=== PATIENT | female | born 1995 | race American Indian/Alaskan Native ===

== ENCOUNTER 2020-01-14 15:53 | Emergency (ER) | payer OTHER, MEDICAID ==
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
[2020-01-14] MEDS ORDERED: HYDROcodone/ACETAMINOPHEN 5-325 MG TAB PO ONE (19:27)
[2020-01-14] MEDS ORDERED: ONDANSETRON 4 MG ODT TAB PO ONE (19:27)
[2020-01-14] MEDS ORDERED: IBUPROFEN 600 MG TAB PO ONE (19:27)
[2020-01-14] MEDS ORDERED: NEOMY 3.5 MG/BACIT 400 UNITS/POLY B 5000 UNITS/GM OINT PACKET TP ONE (19:27)
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
[2020-01-14 21:02] VITALS: BP 116/81
== END 2020-01-14 21:13 | disposition home or self-care (01) ==
LOC: ED 15:53
DX: S00.03XA Contusion of scalp, initial encounter (principal); S83.92XA Sprain of unspecified site of left knee, initial encounter; S80.212A Abrasion, left knee, initial encounter; S60.511A Abrasion of right hand, initial encounter; F17.200 Nicotine dependence, unspecified, uncomplicated; Z79.1 Long term (current) use of non-steroidal anti-inflammatories (NSAID); Z79.899 Other long term (current) drug therapy; V49.49XA Driver injured in collision with other motor vehicles in traffic accident, initial encounter; Y93.89 Activity, other specified; Y92.488 Other paved roadways as the place of occurrence of the external cause; Y99.8 Other external cause status
CPT/HCPCS: 70450; A6250; Q0162

== ENCOUNTER 2021-11-14 14:10 | Emergency (ER) | payer MEDICAID | END 2021-11-14 15:00 | disposition left against medical advice (07) | LOC: ED 14:10 | DX: M79.18 Myalgia, other site (principal); Z53.21 Procedure and treatment not carried out due to patient leaving prior to being seen by health care provider ==

== ENCOUNTER 2022-01-16 05:29 | Emergency (ER) | payer MEDICAID ==
--- NOTE | 2022-01-16 06:38 | XRay Report ---
CHEST 2 VIEWS INDICATION / CLINICAL INFORMATION: chest pain. COMPARISON: None available. FINDINGS: SUPPORT DEVICES: None. HEART / MEDIASTINUM: No significant abnormality. LUNGS / PLEURA: No significant pulmonary or pleural abnormality. No pneumothorax. ADDITIONAL FINDINGS: No significant additional findings. IMPRESSION: 1. No active cardiopulmonary disease. Signer Name: Luis Enrique Smith II, MD Signed: 01/16/2022 6:34 AM Workstation Name: [id number]
[2022-01-16] MEDS ORDERED: ACETAMINOPHEN 325 MG TAB PO ONE (06:44)
[2022-01-16] MEDS ORDERED: predniSONE 20 MG TAB PO ONE (06:44)
--- NOTE | 2022-01-16 06:49 | Emergency Department Report ---
ED General Adult HPI - General Chief complaint: Chest Pain Stated complaint: SHARP CHEST PAIN/BACK PAIN/HARD TO BREATH Time Seen by Provider: 01/16/22 06:15 Source: patient Mode of arrival: Ambulatory Limitations: No Limitations - History of Present Illness Initial comments: 26-year-old -[place] female patient presents with complaints of sudden onset substernal/left chest pain starting 3 days ago. Patient describes the pain as a pressure and stabbing feeling and rates it as a 7/10 in severity. She also states pain with inspiration and mild shortness of breath. She denies any cough, fever/chills/sweats, trauma to her chest wall, or recent heavy lifting. She admits to heart disease in her mother, but denies any personal past medical history. Patient states she is on control and also admits to a recent 6- hour car ride in the past 2 weeks. No leg pain/swelling or hemoptysis per patient. He has not tried any medications for symptoms Severity scale (0 -10): 3 - Related Data Previous Rx's Medication Instructions Recorded Last Taken Type Ibuprofen [Motrin] 600 mg PO Q8H PRN #24 tablet 01/14/20 Unknown Rx Methocarbamol [Robaxin] 500 mg PO Q8H PRN #21 tablet 01/14/20 Unknown Rx cephALEXin [Keflex] 500 mg PO Q8HR #21 cap 01/14/20 Unknown Rx traMADoL [Ultram] 50 mg PO Q6HR PRN #10 tablet 01/14/20 Unknown Rx Naproxen [Naprosyn] 500 mg PO BID PRN #20 tab 01/16/22 Unknown Rx methocarbamoL [Methocarbamol] 750 mg PO TID PRN #24 tab 01/16/22 Unknown Rx predniSONE [Deltasone] 20 mg PO BID 3 Days #6 tab 01/16/22 Unknown Rx Allergies Allergy/AdvReac Type Severity Reaction Status Date / Time No Known Allergies Allergy Verified 01/16/22 06:22 ED Review of Systems ROS: Stated complaint: SHARP CHEST PAIN/BACK PAIN/HARD TO BREATH Other details as noted in HPI Constitutional: denies: chills, diaphoresis, fever, malaise Respiratory: shortness of breath. denies: cough Cardiovascular: chest pain Gastrointestinal: denies: abdominal pain, nausea, vomiting Musculoskeletal: denies: back pain Skin: denies: rash, change in color Hematological/Lymphatic: denies: easy bleeding ED Past Medical Hx - Past Medical History Previous Medical History?: No - Surgical History Past Surgical History?: Yes Additional Surgical History: CSECTION X2 - Social History Smoking Status: Current Every Day Smoker Substance Use Type: Alcohol - Medications Home Medications: Home Medications Medication Instructions Recorded Confirmed Last Taken Type Ibuprofen [Motrin] 600 mg PO Q8H PRN #24 tablet 01/14/20 Unknown Rx Methocarbamol [Robaxin] 500 mg PO Q8H PRN #21 tablet 01/14/20 Unknown Rx cephALEXin [Keflex] 500 mg PO Q8HR #21 cap 01/14/20 Unknown Rx traMADoL [Ultram] 50 mg PO Q6HR PRN #10 tablet 01/14/20 Unknown Rx Naproxen [Naprosyn] 500 mg PO BID PRN #20 tab 01/16/22 Unknown Rx methocarbamoL [Methocarbamol] 750 mg PO TID PRN #24 tab 01/16/22 Unknown Rx predniSONE [Deltasone] 20 mg PO BID 3 Days #6 tab 01/16/22 Unknown Rx ED Physical Exam - General Limitations: No Limitations General appearance: alert, in no apparent distress - Head Head exam: Present: atraumatic, normocephalic - Eye Eye exam: Present: normal appearance. Absent: scleral icterus - Neck Neck exam: Present: normal inspection - Respiratory Respiratory exam: Present: normal lung sounds bilaterally, chest wall tenderness (Sternal and left parasternal). Absent: respiratory distress - Cardiovascular Cardiovascular Exam: Present: regular rate, normal rhythm, normal heart sounds - GI/Abdominal GI/Abdominal exam: Present: soft. Absent: distended, tenderness - Extremities Exam Extremities exam: Absent: calf tenderness (No swelling or pain noted bilaterally) - Back Exam Back exam: Present: full ROM - Neurological Exam Neurological exam: Present: alert, oriented X3, normal gait - Psychiatric Psychiatric exam: Present: normal affect, normal mood - Skin Skin exam: Present: warm, dry, intact, normal color. Absent: rash ED Course Vital Signs 01/16/22 05:55 Temperature 98.3 F Pulse Rate 84 Respiratory 16 Rate Blood Pressure 134/76 [Right] O2 Sat by Pulse 100 Oximetry ED Medical Decision Making - Lab Data Result diagrams: 01/16/22 06:48 03/08/22 06:48 Lab Results 01/16/22 01/16/22 01/16/22 Range/Units 06:48 06:48 06:48 WBC 8.0 (4.5-11.0) K/mm3 RBC 3.84 (3.65-5.03) M/mm3 Hgb 12.4 (10.1-14.3) gm/dl Hct 37.7 (30.3-42.9) % MCV 98 H (79-97) fl MCH 32 (28-32) pg MCHC 33 (30-34) % RDW 13.0 L (13.2-15.2) % Plt Count 257 (140-440) K/mm3 Lymph % (Auto) 31.4 (13.4-35.0) % [place] % (Auto) 6.5 (0.0-7.3) % Eos % (Auto) 1.4 (0.0-4.3) % Baso % (Auto) 0.6 (0.0-1.8) % Lymph # (Auto) 2.5 (1.2-5.4) K/mm3 [place] # (Auto) 0.5 (0.0-0.8) K/mm3 Eos # (Auto) 0.1 (0.0-0.4) K/mm3 Baso # (Auto) 0.0 (0.0-0.1) K/mm3 Seg Neutrophils % 60.1 (40.0-70.0) % Seg Neutrophils # 4.8 (1.8-7.7) K/mm3 D-Dimer (0-234) ng/mlDDU Sodium 138 (137-145) mmol/L Potassium 4.0 (3.6-5.0) mmol/L Chloride 104.9 (98-107) mmol/L Carbon Dioxide 22 (22-30) mmol/L Anion Gap 15 mmol/L BUN 9 (7-17) mg/dL Creatinine 0.6 (0.6-1.2) mg/dL Estimated GFR > 60 ml/min BUN/Creatinine Ratio 15 % Glucose 111 H (65-100) mg/dL Calcium 8.9 (8.4-10.2) mg/dL Total Bilirubin < 0.20 (0.1-1.2) mg/dL AST 24 (5-40) units/L ALT 13 (7-56) units/L Alkaline Phosphatase 50 (35-129) units/L Troponin T < 0.010 (0.00-0.029) ng/mL Total Protein 7.3 (6.3-8.2) g/dL Albumin 4.0 (3.9-5) g/dL Albumin/Globulin Ratio 1.2 % HCG, Qual Negative (Negative) 01/16/22 Range/Units 06:48 WBC (4.5-11.0) K/mm3 RBC (3.65-5.03) M/mm3 Hgb (10.1-14.3) gm/dl Hct (30.3-42.9) % MCV (79-97) fl MCH (28-32) pg MCHC (30-34) % RDW (13.2-15.2) % Plt Count (140-440) K/mm3 Lymph % (Auto) (13.4-35.0) % [place] % (Auto) (0.0-7.3) % Eos % (Auto) (0.0-4.3) % Baso % (Auto) (0.0-1.8) % Lymph # (Auto) (1.2-5.4) K/mm3 [place] # (Auto) (0.0-0.8) K/mm3 Eos # (Auto) (0.0-0.4) K/mm3 Baso # (Auto) (0.0-0.1) K/mm3 Seg Neutrophils % (40.0-70.0) % Seg Neutrophils # (1.8-7.7) K/mm3 D-Dimer 328.23 H (0-234) ng/mlDDU Sodium (137-145) mmol/L Potassium (3.6-5.0) mmol/L Chloride (98-107) mmol/L Carbon Dioxide (22-30) mmol/L Anion Gap mmol/L BUN (7-17) mg/dL Creatinine (0.6-1.2) mg/dL Estimated GFR ml/min BUN/Creatinine Ratio % Glucose (65-100) mg/dL Calcium (8.4-10.2) mg/dL Total Bilirubin (0.1-1.2) mg/dL AST (5-40) units/L ALT (7-56) units/L Alkaline Phosphatase (35-129) units/L Troponin T (0.00-0.029) ng/mL Total Protein (6.3-8.2) g/dL Albumin (3.9-5) g/dL Albumin/Globulin Ratio % HCG, Qual (Negative) - EKG Data EKG shows normal: sinus rhythm Rate: normal - EKG Data Interpretation: other (Possible left atrial enlargement) - Radiology Data Radiology results: report reviewed CHEST 2 VIEWS INDICATION / CLINICAL INFORMATION: chest pain. COMPARISON: None available. FINDINGS: SUPPORT DEVICES: None. HEART / MEDIASTINUM: No significant abnormality. LUNGS / PLEURA: No significant pulmonary or pleural abnormality. No pneumothorax. ADDITIONAL FINDINGS: No significant additional findings. IMPRESSION: 1. No active cardiopulmonary diseas CTA CHEST WITH CONTRAST INDICATION / CLINICAL INFORMATION: pain, SOB, +dimer 100 ML OMNI 300 . TECHNIQUE: Axial CT images were obtained through the chest after injection of 100 cc Omnipaque 300 IV contrast. 3 plane MIP and/or 3D reconstructions were produced. All CT scans at this location are performed using CT dose reduction for ALARA by means of automated exposure control. COMPARISON: None available. FINDINGS: PULMONARY EMBOLUS: None. THORACIC AORTA: No significant abnormality. HEART: No significant abnormality. CORONARY ARTERY CALCIFICATION: Absent -- None. MEDIASTINUM / KYLIE: No significant abnormality. PLEURA: No pleural effusion. No pneumothorax. LUNGS: No acute air space or interstitial disease. ADDITIONAL FINDINGS: None. UPPER ABDOMEN: No acute findings. SKELETAL STRUCTURES: No significant osseous abnormality. IMPRESSION: 1. No CT evidence for pulmonary embolism. 2. No acute findings. - Medical Decision Making 26-year-old -[place] female patient presents with complaints of sudden onset substernal/left chest pain starting 3 days ago. Patient describes the pain as a pressure and stabbing feeling and rates it as a 7/10 in severity. She also states pain with inspiration and mild shortness of breath. She denies any cough, fever/chills/sweats, trauma to her chest wall, or recent heavy lifting. She admits to heart disease in her mother, but denies any personal past medical history. Patient states she is on control and also admits to a recent 6- hour car ride in the past 2 weeks. No leg pain/swelling or hemoptysis per patient. He has not tried any medications for symptoms PERC score = 2. Heart score = 1. No acute abnormalities on EKG or chest x-ray. CTA chest performed after passive dimer and is negative for any acute abnormalities. No acute abnormalities noted on labs. Patient is well-appearing and states her pain has significantly improved with meds given here in ED. We will treat for costochondritis. I do recommend patient follows up with PCP within 3 days. Discussed in detail signs and symptoms that should prompt immediate return to emergency department with patient who verbalized unders tanding Critical care attestation.: If time is entered above; I have spent that time in minutes in the direct care of this critically ill patient, excluding procedure time. ED Disposition Clinical Impression: Other chest pain, Costochondral chest pain Disposition: HOME / SELF CARE / HOMELESS Is pt being admited?: No Condition: Stable Instructions: Costochondritis, Nonspecific Chest Pain, Adult, [id number] Prescriptions: predniSONE [Deltasone] 20 mg PO BID 3 Days #6 tab methocarbamoL [Methocarbamol] 750 mg PO TID PRN #24 tab PRN Reason: muscle tightness Naproxen [Naprosyn] 500 mg PO BID PRN #20 tab PRN Reason: pain Referrals: SANDRA ANDRADE MD [Primary Care Provider] - 3-5 Days Forms: Work/School Release Form(ED) ED Chest pain MDM - [place] Criteria Immobilization of Surgery in Previous 4 Weeks: (1.5) Yes - PERC Rule Heart Rate < 100: (0) No O2 Sat on Room Air > .94%: (0) No No Prior History pf DVT/PE: (0) No No Exogenous Estrogen: (1) Yes ED Chest Pain HPI - General Chief Complaint: Chest Pain Stated Complaint: SHARP CHEST PAIN/BACK PAIN/HARD TO BREATH Time Seen by Provider: 01/16/22 06:15 Source: patient Mode of arrival: Ambulatory Limitations: No Limitations - History of Present Illness Severity scale (0 -10): 3 - Related Data Previous Rx's Medication Instructions Recorded Last Taken Type Ibuprofen [Motrin] 600 mg PO Q8H PRN #24 tablet 01/14/20 Unknown Rx Methocarbamol [Robaxin] 500 mg PO Q8H PRN #21 tablet 01/14/20 Unknown Rx cephALEXin [Keflex] 500 mg PO Q8HR #21 cap 01/14/20 Unknown Rx traMADoL [Ultram] 50 mg PO Q6HR PRN #10 tablet 01/14/20 Unknown Rx Naproxen [Naprosyn] 500 mg PO BID PRN #20 tab 01/16/22 Unknown Rx methocarbamoL [Methocarbamol] 750 mg PO TID PRN #24 tab 01/16/22 Unknown Rx predniSONE [Deltasone] 20 mg PO BID 3 Days #6 tab 01/16/22 Unknown Rx Allergies Allergy/AdvReac Type Severity Reaction Status Date / Time No Known Allergies Allergy Verified 01/16/22 06:22 Heart Score - HEART Score History: Slightly suspicious EKG: Normal Age: < 45 Risk factors: 1-2 risk factors Troponin: < normal limit HEART Score: 1 - EKG Read Time Time EKG Completed: 06:05 EKG Read Time: 06:11 - Critical Actions Critical Actions: 0-3 pts:0.9-1.7%risk of adverse cardiac event.Candidate for discharge
[2022-01-16 07:12] LABS: Basophils % (Auto) 0.6 % (0.0-1.8); Eosinophils # (Auto) 0.1 K/mm3 (0.0-0.4); Eosinophils % (Auto) 1.4 % (0.0-4.3); Hematocrit 37.7 % (30.3-42.9); Hemoglobin 12.4 gm/dl (10.1-14.3); Lymphocytes # (Auto) 2.5 K/mm3 (1.2-5.4); Lymphocytes % (Auto) 31.4 % (13.4-35.0); Mean Corpuscular HGB Conc 33 % (30-34); Mean Corpuscular Volume 98 fl (79-97); Monocytes # (Auto) 0.5 K/mm3 (0.0-0.8); Monocytes % (Auto) 6.5 % (0.0-7.3); Platelet Count 257 K/mm3 (140-440); Red Blood Count 3.84 M/mm3 (3.65-5.03)
[2022-01-16 07:29] LABS: Alanine Aminotransferase 13 units/L (7-56); Blood Urea Nitrogen 9 mg/dL (7-17); Calcium 8.9 mg/dL (8.4-10.2); Hemolysis Index 21
[2022-01-16 07:34] LABS: BUN/Creatinine Ratio 15
--- NOTE | 2022-01-16 09:55 | Cat Scan Report ---
CTA CHEST WITH CONTRAST INDICATION / CLINICAL INFORMATION: pain, SOB, +dimer 100 ML OMNI 300 . TECHNIQUE: Axial CT images were obtained through the chest after injection of 100 cc Omnipaque 300 IV contrast. 3 plane MIP and/or 3D reconstructions were produced. All CT scans at this location are per formed using CT dose reduction for ALARA by means of automated exposure control. COMPARISON: None available. FINDINGS: PULMONARY EMBOLUS: None. THORACIC AORTA: No significant abnormality. HEART: No significant abnormality. CORONARY ARTERY CALCIFICATION: Absent -- None. MEDIASTINUM / KYLIE: No significant abnormality. PLEURA: No pleural effusion. No pneumothorax. LUNGS: No acute air space or interstitial disease. ADDITIONAL FINDINGS: None. UPPER ABDOMEN: No acute findings. SKELETAL STRUCTURES: No significant osseous abnormality. IMPRESSION: 1. No CT evidence for pulmonary embolism. 2. No acute findings. Signer Name: Lui Jason MD Signed: 01/16/2022 9:51 AM Workstation Name: [id number]
[2022-01-16 10:19] VITALS: BP 128/82
--- NOTE | 2022-01-17 09:20 | Electrocardiograph Report ---
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
== END 2022-01-16 10:19 | disposition home or self-care (01) ==
LOC: ED 05:29
DX: R07.89 Other chest pain (principal); R07.1 Chest pain on breathing; F17.200 Nicotine dependence, unspecified, uncomplicated
CPT/HCPCS: 36415; 71046; 71275; 80053; 84484; 84703; 85025; 85379; 93005; 99284; Q9967

== ENCOUNTER 2022-03-26 07:39 | Emergency (ER) | payer MEDICAID ==
--- NOTE | 2022-03-26 08:35 | XRay Report ---
RIGHT ANKLE 3 VIEWS INDICATION: ankle injury. COMPARISON: None. IMPRESSION: No acute osseous or soft tissue abnormality. No significant DJD. Signer Name: Vik Sheets Jr, MD Signed: 03/26/2022 8:30 AM Workstation Name: [id number]
[2022-03-26] MEDS ORDERED: HYDROcodone/ACETAMINOPHEN 10-325MG TAB PO ONE (09:20)
--- NOTE | 2022-03-26 09:52 | XRay Report ---
RIGHT FOOT 3 VIEW(S) INDICATION / CLINICAL INFORMATION: foot pain s/p fall COMPARISON: None available. FINDINGS: BONES / JOINT(S): No acute fracture or subluxation. No significant arthritis. SOFT TISSUES: No significant abnormality. ADDITIONAL FINDINGS: None. IMPRESSION: 1. No acute findings. Signer Name: Rogelio Dallas MD Signed: 03/26/2022 9:47 AM Workstation Name: [id number]
--- NOTE | 2022-03-26 10:48 | Emergency Department Report ---
ED Lower Extremity HPI - General Chief Complaint: Extremity Injury, Lower Stated Complaint: SWOLLEN RT FOOT Time Seen by Provider: 03/26/22 09:08 Source: patient Mode of arrival: Wheelchair Limitations: No Limitations - History of Present Illness Initial Comments: This is a 26-year-old female nontoxic, well nourished in appearance, no acute signs of distress presents to the ED with c/o of right foot pain 2 days. Patient stated that she had mechanical trip and fall from stairs Patient denies any other injuries or trauma. Patient denies any numbness, tingling, fever, chills, nausea, vomiting, chest pain, shortness of breath, headache, stiff neck. Patient denies any joint swelling or joint redness. Patient denies decreased range of motion. Patient stated has decreased gait due to pain. Patient denies any allergies or significant past medical history. MD Complaint: foot injury -: days(s) Injury: Foot: Right Severity: mild Severity scale (0 -10): 8 Improves With: immobilization Worsens With: weight bearing, movement, palpation Associated Symptoms: able to partially bear weight. denies: snap/pop sensation, swelling, numbness, tingling, unable to bear weight - Related Data Previous Rx's Medication Instructions Recorded Last Taken Type Ibuprofen [Motrin] 600 mg PO Q8H PRN #24 tablet 01/14/20 Unknown Rx Methocarbamol [Robaxin] 500 mg PO Q8H PRN #21 tablet 01/14/20 Unknown Rx cephALEXin [Keflex] 500 mg PO Q8HR #21 cap 01/14/20 Unknown Rx traMADoL [Ultram] 50 mg PO Q6HR PRN #10 tablet 01/14/20 Unknown Rx Naproxen [Naprosyn] 500 mg PO BID PRN #20 tab 01/16/22 Unknown Rx methocarbamoL [Methocarbamol] 750 mg PO TID PRN #24 tab 01/16/22 Unknown Rx predniSONE [Deltasone] 20 mg PO BID 3 Days #6 tab 01/16/22 Unknown Rx Naproxen 500 mg PO Q12H PRN #12 tab 03/26/22 Unknown Rx Allergies Allergy/AdvReac Type Severity Reaction Status Date / Time No Known Allergies Allergy Verified 01/16/22 06:22 ED Review of Systems ROS: Stated complaint: SWOLLEN RT FOOT Other details as noted in HPI Comment: All other systems reviewed and negative Constitutional: denies: chills, fever Eyes: denies: eye pain, eye discharge, vision change ENT: denies: ear pain, throat pain Respiratory: denies: cough, shortness of breath, wheezing Cardiovascular: denies: chest pain, palpitations Endocrine: no symptoms reported Gastrointestinal: denies: abdominal pain, nausea, diarrhea Genitourinary: denies: urgency, dysuria, discharge Musculoskeletal: denies: back pain, joint swelling, arthralgia Skin: denies: rash, lesions Neurological: denies: headache, weakness, paresthesias Psychiatric: denies: anxiety, depression Hematological/Lymphatic: denies: easy bleeding, easy bruising ED Past Medical Hx - Past Medical History Previous Medical History?: No - Surgical History Past Surgical History?: No Additional Surgical History: CSECTION X2 - Social History Smoking Status: Current Every Day Smoker Substance Use Type: Alcohol - Medications Home Medications: Home Medications Medication Instructions Recorded Confirmed Last Taken Type Ibuprofen [Motrin] 600 mg PO Q8H PRN #24 tablet 01/14/20 Unknown Rx Methocarbamol [Robaxin] 500 mg PO Q8H PRN #21 tablet 01/14/20 Unknown Rx cephALEXin [Keflex] 500 mg PO Q8HR #21 cap 01/14/20 Unknown Rx traMADoL [Ultram] 50 mg PO Q6HR PRN #10 tablet 01/14/20 Unknown Rx Naproxen [Naprosyn] 500 mg PO BID PRN #20 tab 01/16/22 Unknown Rx methocarbamoL [Methocarbamol] 750 mg PO TID PRN #24 tab 01/16/22 Unknown Rx predniSONE [Deltasone] 20 mg PO BID 3 Days #6 tab 01/16/22 Unknown Rx Naproxen 500 mg PO Q12H PRN #12 tab 03/26/22 Unknown Rx ED Physical Exam - General Limitations: No Limitations General appearance: alert, in no apparent distress - Head Head exam: Present: atraumatic, normocephalic - Eye Eye exam: Present: normal appearance - Neck Neck exam: Present: normal inspection, full ROM. Absent: lymphadenopathy - Respiratory Respiratory exam: Absent: respiratory distress - Cardiovascular Cardiovascular Exam: Present: regular rate - Extremities Exam Extremities exam: Present: full ROM, tenderness, normal capillary refill. Absent: joint swelling - Expanded Lower Extremity Exam Right Hip exam: Present: normal inspection, full ROM. Absent: tenderness, swelling Upper Leg exam: Present: normal inspection, full ROM. Absent: tenderness, sw elling Knee exam: Present: normal inspection, full ROM. Absent: tenderness, swelling Lower Leg exam: Present: normal inspection, full ROM. Absent: tenderness, swelling Ankle exam: Present: normal inspection, full ROM. Absent: tenderness, swelling, abrasion, laceration, ecchymosis, deformity, crepidus, dislocation, erythema, anterior draw sign Foot/Toe exam: Present: normal inspection, full ROM, tenderness. Absent: swelling, abrasion, laceration, ecchymosis, deformity, crepidus, dislocation, erythema, amputation, puncture wound, foreign body, calcaneal tenderness, tenderness at base of 5th metatarsal, nail avulsion, subungual hematoma Neuro vascular tendon exam: Present: no vascular compromise Gait: Positive: observed and limited by pain 1 - pain here - Back Exam Back exam: Present: normal inspection, full ROM. Absent: tenderness, CVA tenderness (R), CVA tenderness (L), muscle spasm, paraspinal tenderness, vertebral tenderness, rash noted - Neurological Exam Neurological exam: Present: alert, oriented X3 - Psychiatric Psychiatric exam: Present: normal affect, normal mood - Skin Skin exam: Present: warm, dry, intact, normal color. Absent: rash ED Course Vital Signs 03/26/22 08:07 Temperature 98.3 F Pulse Rate 82 Respiratory 16 Rate Blood Pressure 131/85 [Left] O2 Sat by Pulse 99 Oximetry - Reevaluation(s) Reevaluation #1: 03/26/22 10:43 Patient is speaking in full sentences with no signs of distress noted. ED Lower Extremity MDM - Radiology Data [facility] [address] [place] [address] XRay Report Signed Patient: TOSIN DUMONT MR#: [id number] : 1995 Acct:[id number] Age/Sex: 26 / F ADM Date: 03/26/22 Loc: ED Attending Dr: Ordering Physician: TIFFANIE ROYAL NP Date of Service: 03/26/22 Procedure(s): XR foot 3+V RT Accession Number(s): [id number] cc: TIFFANIE ROYAL NP Fluoro Time In Minutes: RIGHT FOOT 3 VIEW(S) INDICATION / CLINICAL INFORMATION: foot pain s/p fall COMPARISON: None available. FINDINGS: BONES / JOINT(S): No acute fracture or subluxation. No significant arthritis. SOFT TISSUES: No significant abnormality. ADDITIONAL FINDINGS: None. IMPRESSION: 1. No acute findings. Signer Name: Rogelio Dallas MD Signed: 03/26/2022 9:47 AM Workstation Name: [id number] Transcribed By: TL Dictated By: Rogelio Dallas MD Electronically Authenticated By: Rogelio Dallas MD Signed Date/Time: 03/26/22946 DD/ 5 TD/TT: [address] [address] XRay Report Signed Patient: TOSIN DUMONT MR#: [id number] : 1995 Acct:[id number] Age/Sex: 26 / F ADM Date: 03/26/22 Loc: ED Attending Dr: Ordering Physician: JAMARI IRVIN MD Date of Service: 03/26/22 Procedure(s): XR ankle 3+V RT Accession Number(s): [id number] cc: JAMARI IRVIN MD Fluoro Time In Minutes: RIGHT ANKLE 3 VIEWS INDICATION: ankle injury. COMPARISON: None. IMPRESSION: No acute osseous or soft tissue abnormality. No significant DJD. Signer Name: Vik Sheets Jr, MD Signed: 03/26/2022 8:30 AM Workstation Name: [id number] Transcribed By: TTR Dictated By: VIK SHEETS JR, MD Electronically Authenticated By: VIK SHEETS JR, MD Signed Date/Time: 03/26/22829 DD/ 9 TD/TT: - Medical Decision Making This is a 26-year-old female that presents with right foot injury. Patient is stable and was examined by me. I referred patient to an orthopedic doctor for further evaluation for possible MRI. X-ray has been obtained and dictated by the radiologist. Patient is notified of the x-ray report with noted by the patient. Patient does have normal gait with some tenderness and no joint swelling. No ecchymosis. no joint redness or swelling. Not warm to touch. No signs of cellulites present. Patient received a postop shoe for pain comfort. Patient was instructed to RICE therapy. Patient received [place] for pain which stated symptoms has improved and subsided. Stated family will drive patient home after discharge due to possible drowsiness. Patient is discharged with Motrin. At time of discharge, the patient does not seem toxic or ill in appearance. No acute signs of distress noted. Patient agrees to discharge treatment plan of care. No further questions noted by the patient. Critical care attestation.: If time is entered above; I have spent that time in minutes in the direct care of this critically ill patient, excluding procedure time. ED Disposition Clinical Impression: Right foot injury Qualifiers: Encounter type: initial encounter Qualified Code(s): S99.921A - Unspecified injury of right foot, initial encounter Disposition: 01 HOME / SELF CARE / HOMELESS Is pt being admited?: No Does the pt Need Aspirin: No Condition: Stable Instructions: RICE Therapy for Routine Care of Injuries, [id number] Additional Instructions: Follow-up with a orthopedic doctor in 3-5 days or if symptoms worsen and continue return to emergency room as soon as possible. No physical activity that extremity until cleared by orthopedic doctor Prescriptions: Naproxen 500 mg PO Q12H PRN #12 tab PRN Reason: Pain , Severe (7-10) Referrals: PRIMARY CAREMD [Primary Care Provider] - 3-5 Days CASTRO VALERA MD [Staff Physician] - 3-5 Days Time of Disposition: 10:52
[2022-03-26 11:11] VITALS: BP 122/84
== END 2022-03-26 11:09 | disposition home or self-care (01) ==
LOC: ED 07:39
DX: S99.921A Unspecified injury of right foot, initial encounter (principal); Z98.890 Other specified postprocedural states; F17.290 Nicotine dependence, other tobacco product, uncomplicated; W01.0XXA Fall on same level from slipping, tripping and stumbling without subsequent striking against object, initial encounter; Y93.89 Activity, other specified; Y92.89 Other specified places as the place of occurrence of the external cause; Y99.8 Other external cause status
CPT/HCPCS: 99283

== ENCOUNTER 2022-06-19 14:57 | Emergency (ER) | payer MEDICAID ==
[2022-06-19 16:10] VITALS: BP 161/91
[2022-06-19 17:13] LABS: Alanine Aminotransferase 9 units/L (7-56); Albumin 4.5 g/dL (3.9-5); BUN/Creatinine Ratio 6; Blood Urea Nitrogen 5 mg/dL (7-17); Hemolysis Index 8
[2022-06-19 17:19] LABS: Hematocrit 39.4 % (30.3-42.9); Hemoglobin 13.6 gm/dl (10.1-14.3); Mean Corpuscular HGB Conc 35 % (30-34); Mean Corpuscular Volume 99 fl (79-97); Platelet Count 226 K/mm3 (140-440); Red Blood Count 3.98 M/mm3 (3.65-5.03); Red Cell Distribution Width 12.5 % (13.2-15.2)
[2022-06-19 20:24] LABS: Mucus,Urine 3+ /HPF
[2022-06-19 20:32] LABS: Color,Urine Yellow (Yellow)
[2022-06-19 20:33] LABS: Bilirubin,Urine Negative (Negative); Blood,Urine Negative (Negative); Urobilinogen,Urine < 2.0 mg/dL (<2.0)
== END 2022-06-19 20:00 | disposition left against medical advice (07) ==
LOC: ED 14:57
DX: O26.891 Other specified pregnancy related conditions, first trimester (principal); R10.2 Pelvic and perineal pain; Z53.21 Procedure and treatment not carried out due to patient leaving prior to being seen by health care provider; Z3A.00 Weeks of gestation of pregnancy not specified
CPT/HCPCS: 36415; 80053; 81001; 84702; 85027